=== PATIENT | male | born 2000 | race Caucasian/White ===

== ENCOUNTER → 2021-10-02 09:54 | Outpatient (CLI) | payer OTHER, MEDICAID, SELFPAY ==
[2021-10-02 12:06] LABS: COVID19 -Nasal RAPID POSITIVE (Negative)
== END ==
PROVIDERS: PCP Pediatrics; Referring Provider Physician Assistant; Visit Provider Physician Assistant
DX: Z20.822 Contact with and (suspected) exposure to COVID-19 (principal)
CPT/HCPCS: 87635; C9803

== ENCOUNTER 2021-10-28 19:58 | Emergency (ER) | payer OTHER, MEDICAID, SELFPAY ==
[2021-10-28 20:12] VITALS: BP 143/82; PULSE 117; RESP 16; TEMP 37.2; O2SAT 98; BMI 23.6
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
--- NOTE | 2021-10-28 20:32 | DI.RAD.S_ITS ---
PROCEDURE: XR HAND RT MIN 3V INDICATIONS: right hand injury TECHNIQUE: 3 views of the hand(s) acquired. COMPARISON: None. FINDINGS: Bones: No dislocations. But there is a mildly comminuted set of fractures involving the base of the 5th proximal phalanx, intra-articular, with slight impaction along the fracture planes at the articular surface. A fracture at the 4th or 5th metacarpal head is not seen. Overlying soft tissue swelling is [id number] Carpal bones are normally aligned. No suspicious bony lesions. Soft tissues: No suspicious soft tissue calcifications. IMPRESSION: Intra-articular mildly comminuted but minimally displaced proximal 5th phalanx fractures. Dictated by: Kirill Alejandre M.D. on 10/28/2021 at 20:51 Approved by: Kirill Alejandre M.D. on 10/28/2021 at 20:54
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
[2021-10-28] MEDS: HYDROCODONE/ACET 5/325 PREPACK 1 BOTTLE MISC (21:25)
--- NOTE | 2021-10-28 21:26 | PC.NURSE ---
ulnar gutter splint applied to right hand
== END 2021-10-28 21:27 | disposition home or self-care (01) ==
PROVIDERS: Emergency Provider Emergency Medicine
DX: S62.616A Displaced fracture of proximal phalanx of right little finger, initial encounter for closed fracture (principal); Y04.0XXA Assault by unarmed brawl or fight, initial encounter
CPT/HCPCS: 29125; 73130; 99283

== ENCOUNTER 2021-11-01 11:31 | Emergency (ER) | payer OTHER, MEDICAID, SELFPAY ==
[2021-11-01 11:35] VITALS: BP 133/80; PULSE 91; RESP 14; TEMP 37; O2SAT 98; BMI 23.6
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
[2021-11-01 12:14] VITALS: PULSE 89; RESP 18; O2SAT 99
== END 2021-11-01 12:15 | disposition home or self-care (01) ==
PROVIDERS: Emergency Provider Emergency Medicine
DX: S62.616A Displaced fracture of proximal phalanx of right little finger, initial encounter for closed fracture (principal); X58.XXXA Exposure to other specified factors, initial encounter
CPT/HCPCS: 29130; 99281; 99282

== ENCOUNTER 2022-11-22 19:11 | Emergency (ER) | payer OTHER, MEDICAID, SELFPAY ==
[2022-11-22 19:15] VITALS: BP 122/72; PULSE 104; RESP 18; TEMP 36.5; O2SAT 96; BMI 25.0
--- NOTE | 2022-11-22 19:39 | ED_ITS ---
HPI - Extremity Problem <Prudencio Onofre PA-C - Last Filed: 11/22/22 19:48> General Chief complaint: Extremity Problem,Nontraumatic Stated complaint: Not healing properly, Hole developing in nose Time Seen by Provider: 11/22/22 19:13 Source: patient Mode of arrival: Ambulatory History of Present Illness HPI Narrative: This is a 22-year-old male presents to the emergency department complaining of multiple minor medical complaints. Patient elected to come here as he is not able to establish with a primary care provider. Patient's 1st complaint is concerns that he is a ?hole in his nose? since he states that he is a friend had similar symptoms of recurrent bloody noses. Denies any purulent discharge from the nose or any difficulty breathing. Patient's 2nd complaint is bilateral great toe ingrown toenails, causing him pain. Patient's 3rd complaint is erythema around his right 2nd digit with. Some purulent drainage. Denies any fevers or spreading redness up his hand. Related Data Home Medications Medication Instructions Recorded Confirmed Diphenhydramine Hydrochloride 25 mg PO HS ##0 03/31/10 (Benadryl) FLUTICASONE 50MCG AURELIO INH- 1 spray intranasal BID ##0 03/31/10 (FLUTICASONE PROPIONATE) Methylphenidate Hydrochloride 5 mg PO Q DAY ##0 03/31/10 (Ritalin/Concerta) [SUDAFED] Q DAY ##0 03/31/10 Previous Rx's Medication Instructions Recorded doxycycline hyclate 100 mg capsule 100 mg PO BID 7 days #14 caps 11/22/22 Allergies Allergy/AdvReac Type Severity Reaction Status Date / Time No Known Drug Allergies Allergy Verified 11/01/21 11:38 Review of Systems <Prudencio Onofre PA-C - Last Filed: 11/22/22 19:48> Review of Systems Narrative: GENERAL: Denies chills, fatigue, malaise, fever, sweats. HEENT: Denies sinus pain, ear pain, sore throat, difficulty swallowing, dizziness. RESPIRATORY: Denies dyspnea, cough, wheezing, hemoptysis, sputum. CARDIOVASCULAR: Denies chest pain, palpitations, orthopnea, edema, GASTROINTESTINAL: Denies nausea, vomiting, abdominal pain, diarrhea, constipation, melena. : Denies dysuria, frequency, incontinence, hematuria, urinary retention. MUSCULOSKELETAL: denies weakness, joint pain, or bony pain SKIN: Bilateral great toe ingrown toenails as well as right 2nd digit lesion NEUROLOGIC: Denies weakness, headache, numbness, change in speech, confusion, seizures, incoordination. PSYCHIATRIC: No concerning psychosocial issues. 12 point review of systems is negative except for those stated above Patient History <Prudencio Onofre PA-C - Last Filed: 11/22/22 19:48> Medical History Chronic pain of right hand Fracture of hand Social History Smoking Status: Current every day smoker Smoking Status: Current every day smoker alcohol intake frequency: 3 or more drinks per day Substance Use Type: marijuana Exam <Prudencio Onofre PA-C - Last Filed: 11/22/22 19:48> Narrative Exam Narrative: GENERAL: Well-developed patient, in mild distress. HEAD: Atraumatic. Normocephalic. EYES: Pupils equal round and reactive. Extraocular motions intact. No scleral icterus. No injection or drainage. ENT: Inner nasal mucosa appears raw but no holes in the symptoms. No intranasal hematomas. Throat without erythema, tonsillar hypertrophy or exudate. Airway patent. NECK: Trachea midline. Non tender CARDIOVASCULAR: Regular rate and rhythm without murmurs, gallops, or rubs. RESPIRATORY: Clear to auscultation. Breath sounds equal bilaterally. No wheezes, rales, or rhonchi. GASTROINTESTINAL: Abdomen soft, non-tender, nondistended. EXTREMITIES: No edema or joint tenderness. BACK: Nontender without deformity or crepitance. No flank tenderness. NEURO: AOx3. SKIN: Bilateral ingrown toenails to the bilateral great toes. No active drainage. Patient also has a paronychia to the right 2nd digit with already some drainage. Initial Vital Signs Initial Vital Signs: Vital Signs Temperature 97.7 F 11/22/22 19:15 Pulse Rate 104 H 11/22/22 19:15 Respiratory Rate 18 11/22/22 19:15 Blood Pressure 122/72 11/22/22 19:15 Pulse Oximetry 96 11/22/22 19:15 Oxygen Delivery Method 11/22/22 19:15 <Blaire Otero DO - Last Filed: 11/23/22 03:53> Initial Vital Signs Initial Vital Signs: Vital Signs Temperature 97.7 F 11/22/22 19:15 Pulse Rate 104 H 11/22/22 19:15 Respiratory Rate 18 11/22/22 19:15 Blood Pressure 122/72 11/22/22 19:15 Pulse Oximetry 96 11/22/22 19:15 Oxygen Delivery Method 11/22/22 19:15 Course <Prudencio Onofre PA-C - Last Filed: 11/22/22 19:48> Vital Signs Vital signs: Vital Signs - 8 hr 11/22/22 19:15 Temperature 97.7 F Pulse Rate 104 H Respiratory Rate 18 Blood Pressure 122/72 Pulse Oximetry 96 Oxygen Delivery Method Room Air <Blaire Otero DO - Last Filed: 11/23/22 03:53> Vital Signs Vital signs: Vital Signs - 8 hr 11/22/22 19:15 Temperature 97.7 F Pulse Rate 104 H Respiratory Rate 18 Blood Pressure 122/72 Pulse Oximetry 96 Oxygen Delivery Method Room Air MDM - Extremity (Nontraumatic) <Prudencio Onofre PA-C - Last Filed: 11/22/22 19:48> MDM Narrative Medical decision making narrative: MDM * differential diagnosis includes but not limited to paronychia, felon, tenosynovitis, ingrown toenails * Prior records reviewed: Patient has not been here for similar complaints in the past. * My lab interpretation: None obtained * My imgaing interpretation: None * Clinical Decision Rules/Scores evaluated: None * Independent discussions with: None ED Course: Patient presents with multiple minor medical complaints. He was unable to establish with a primary care provider elected come to the emergency department. Patient's 1st complaint was a ?hole in his nose?. There was no evidence of any kind of septal damage or septal hematomas although did appear somewhat raw. Recommended no picking or irritating of the nasal mucosa until the skin has had heal. Patient also presented with bilateral ingrown toenails. Recommend he take oral antibiotics as prescribed as well as continue with warm soaks in the hopes that this will improve his toenails. Suspect the antibiotics prescribed will help with the paronychia on his finger as well. Shared Decision Making: Discussed plan with patient who is agreeable with plan Social Considerations: Patient reports no access to primary care provider but recommend he attempt to establish Disposition: Discharged home Discharge Plan Departure Patient Disposition: Home Clinical Impression: Ingrowing toenail, Paronychia Activity Restrictions/Additional Instructions: Thank you for coming to the [facility] Emergency Department today. Does not appear to be any hole in her septum. Please take antibiotics as prescribed that should help with your ingrown toenails as well as the lesion to your finger. I hope you feel better soon. Prescriptions: New doxycycline hyclate 100 mg capsule 100 mg PO BID 7 Days Qty: 14 0RF No Action Diphenhydramine Hydrochloride (Benadryl) 25 mg PO HS Qty: 0 FLUTICASONE 50MCG AURELIO INH- (FLUTICASONE PROPIONATE) 1 spray Intranasal BID Qty: 0 Methylphenidate Hydrochloride (Ritalin/Concerta) 5 mg PO Q DAY Qty: 0 [SUDAFED] Q DAY Qty: 0 Stand Alone Forms: Patient Portal/API <Blaire Otero DO - Last Filed: 11/23/22 03:53> Cosign ED Attending Cosignature Attestation: I was immediately available in the department for consultation. Documentation has been reviewed.
== END 2022-11-22 19:51 | disposition home or self-care (01) ==
PROVIDERS: Emergency Provider Physician Assistant Medical
DX: L60.0 Ingrowing nail (principal); L03.032 Cellulitis of left toe; L03.031 Cellulitis of right toe
CPT/HCPCS: 99281